=== PATIENT | male | born 1995 | race Two or more races ===

== ENCOUNTER 2024-11-13 08:25 | Emergency (ER) | payer MEDICAID, SELFPAY ==
[2024-11-13 08:26] VITALS: BMI 20.9
[2024-11-13 08:50] VITALS: BP 119/78; PULSE 77; RESP 24; TEMP 37.1; O2SAT 96; BMI 24.7
[2024-11-13] MEDS: DEXAMETHASONE SOD PHOS INJ 10 MG/ML VIAL PO (09:51)
[2024-11-13] MEDS: IBUPROFEN TAB 400 MG TABLET 800 MG PO (09:51)
[2024-11-13 10:07] VITALS: PULSE 58
[2024-11-13] MEDS: ALBUTEROL RT 2.5 MG/0.5 ML NEBU INH ×2 (10:07→10:24)
[2024-11-13 10:10] VITALS: PULSE 85; RESP 16; O2SAT 98
[2024-11-13] MEDS: SODIUM CHLORIDE RT SOL 0.9% 3 ML NEBU INH ×2 (10:10→10:24)
[2024-11-13 10:24] VITALS: PULSE 74; PULSE 81; RESP 18; O2SAT 99
--- NOTE | 2024-11-13 10:57 | PD.EDSOB ---
ED SOB =RME/HPI General Chief Complaint: Shortness of Breath/Dyspnea Stated Complaint: ASTHMA FLAIR UP AND WANTS PRESCRIPTION Time Seen by Provider: 11/13/24 08:32 Arrival date/time: 11/13/24 08:25 This is a 29-year-old male that comes in with complaints of shortness of breath and asthma flareup. Patient states that he does not have an inhaler anymore. Patient reports he also has bad allergies. Patient denies any fever or chills. Patient denies any other symptoms. Patient states his symptoms are worse at night. Related Data Previous Rx's ?Medication ?Instructions ?Recorded ondansetron 4 mg disintegrating 4 mg PO Q8H PRN nausea and 06/21/18 tablet vomiting #5 tabs albuterol sulfate 90 mcg/actuation 2 puff inhalation QID PRN 11/13/24 aerosol inhaler shortness of breath or wheezing #8.5 grams Allergies Allergy/AdvReac Type Severity Reaction Status Date / Time No Known Allergies Allergy Verified 11/13/24 08:27 Review of Systems Review of Systems Systems Reviewed: All systems reviewed, normal except as documented Past Medical History Past Medical History RESPIRATORY: Positive Asthma Surgical History OTHER SURGICAL HX: denies pshx Social History SMOKING STATUS: Current every day smoker SUBSTANCE USE: 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 GENERAL APPEARANCE: Alert and interactive, follows commands, no acute distress, HEAD AND FACE: Non-traumatic. ENT: PERRL, conjuctiva pink and clear, eyelid no trauma, Mucous membrane moist. NECK: Supple, nontender, no nuchal rigidity. CHEST: No tenderness, no crepitus, no paradoxical movement, no retractions. LUNGS: Clear, well ventilated, symmetric, wheezing throughout HEART: Regular rate, regular rhythm, no murmur, no gallops. ABDOMEN: Soft, nondistended, no guarding, nontender, no rebound, no masses, NEUROLOGICAL: Gross motor function intact sensory function intact, Appropriate for age. MUSCULOSKELETAL: low back nontender, full range of motion. EXTREMITIES: No redness no swelling no skin breakdown on bilateral foot and leg. Distal neurovascular status intact bilateral foot SKIN: Color pink, dry, no rash, no lacerations, no abrasions, no contusions. Course Quality Measures none Orders Category Date Time Status ALBUTEROL RT 0.5ml [Proventil Rt 0.5ml] Med 11/13/24 09:38 Discontinued 2.5 mg INH X1 ONE ALBUTEROL RT 0.5ml [Proventil Rt 0.5ml] Med 11/13/24 10:21 Discontinued 2.5 mg INH X1 ONE Dexamethasone Inj [Decadron Inj] Med 11/13/24 09:38 Discontinued 10 mg PO X1 ONE Ibuprofen Tab [Motrin Tab] Med 11/13/24 09:38 Discontinued 800 mg PO X1 ONE Sodium Chloride Rt Saloni 0.9% [NS Rt Saloni 0.9%] Med 11/13/24 09:38 Discontinued 3 ml INH PRN PRN Sodium Chloride Rt Saloni 0.9% [NS Rt Saloni 0.9%] Med 11/13/24 10:21 Discontinued 3 ml INH PRN PRN Vital Signs Vital signs: Vital Signs Temperature 98.8 F 11/13/24 08:50 Pulse Rate 77 11/13/24 08:50 Respiratory Rate 24 H 11/13/24 08:50 Blood Pressure 119/78 11/13/24 08:50 Pulse Oximetry (%) 96 11/13/24 08:50 Oxygen Delivery Method Room Air 11/13/24 08:50 Shortness of Breath / Dyspnea MDM Narrative MDM Narrative:: Patient was given 2 breathing treatments and a dose of Decadron. Patient's wheezing significantly improved. Patient feels better. I told patient to follow-up with primary provider in 1 to 2 days. Come back to emergency room symptoms change or worsen. Will send patient home with an inhaler. Patient data External records reviewed:: [facility] previous records Clinical information provided by:: patient Social determinants that could affect healthcare access:: none Patient has the following chronic illnesses:: none How is presenting disease/condition affected by chronic disease/condition?: no chronic disease Evaluation data The following diagnostics were reviewed and interpreted by me:: lab results Lab and/or radiology exams considered but not ordered:: none Interpretation Summary: see note Medications / Prescriptions Medications or Prescriptions considered but not ordered:: none Medication administrations:: Medication Administration History Discontinued Medications Albuterol (Albuterol Rt 2.5 Mg/0.5 Ml Nebu) 2.5 mg INH X1 ONE Stop: 11/13/24 09:39 Last Admin: 11/13/24 10:07 Dose: 2.5 mg Documented By: KAMERON Albuterol (Albuterol Rt 2.5 Mg/0.5 Ml Nebu) 2.5 mg INH X1 ONE Stop: 11/13/24 10:22 Last Admin: 11/13/24 10:24 Dose: 2.5 mg Documented By: KAMERON Dexamethasone Sodium Phosphate (Dexamethasone Sod Phos Inj 10 Mg/Ml Vial) 10 mg PO X1 ONE Stop: 11/13/24 09:39 Last Admin: 11/13/24 09:51 Dose: 10 mg Documented By: ER Comments: PO Ibuprofen (Ibuprofen Tab 400 Mg Tablet) 800 mg PO X1 ONE Stop: 11/13/24 09:39 Last Admin: 11/13/24 09:51 Dose: 800 mg Documented By: ER Sodium Chloride (Sodium Chloride Rt Saloni 0.9% 3 Ml Nebu) 3 ml INH PRN PRN PRN Reason: SOLN Stop: 12/13/24 09:37 Last Admin: 11/13/24 10:24 Dose: 3 ml Documented By: Admin: 11/13/24 10:10 Dose: 3 ml Documented By: KAMERON Sodium Chloride (Sodium Chloride Rt Saloni 0.9% 3 Ml Nebu) 3 ml INH PRN PRN PRN Reason: SOLN Stop: 12/13/24 10:20 see mar Consultations Consultation(s) initiated? (list below): No Diagnosis Shortness of Breath Differential Diagnosis: acute exacerbation of chronic obstructive airways disease, congestive heart failure, community acquired pneumonia and asthma with exacerbation Most likely diagnosis given after review of the tests above:: rad exacerbation Admission Indicated Admission indicated?: not indicated Admission Request Was there a request for admission?: No Disposition Plan Disposition Plan: Discharge Discharge Attestation Discharge Attestation: The patient and all family members were given an opportunity to ask questions and understood the discharge instructions. Discharge instructions specifically effects, indications for sooner follow up or return to the emergency department, and the expected course of current diagnosis. Patient condition: Stable Discharge Plan Plan Patient Disposition: HOME (Self Care) Patient condition on transfer: Stable Prescriptions/Referrals Prescriptions/Med Rec: New albuterol sulfate 90 mcg/actuation HFA aerosol inhaler 2 puff inhalation QID PRN (Reason: shortness of breath or wheezing) Qty: 8.5 0RF No Action ondansetron 4 mg tablet,disintegrating 4 mg PO Q8H PRN (Reason: nausea and vomiting) Qty: 5 0RF Referrals: Aisha Mtz PA-C [Primary Care Provider] - In 1 week Problem List Clinical Impression: URI (upper respiratory infection), RAD (reactive airway disease) Patient/Caregiver Discharge Instructions Discharge Activity: activity as tolerated Education Materials: ED Inhaler Use, ED URI, Viral W/ Wheezing (Adult) Additional Instructions: Follow up with primary provider in 1-2 days. Come back to ED if symptoms change or worsen Print Language: Tamazight Stand Alone Forms: Samantha Award Info., Patient Portal Info Letter PA/CONSTANCE Supervising Physician PA/CONSTANCE Supervising Physician: ANISHA
[2024-11-13 11:05] VITALS: PULSE 88; RESP 18; TEMP 37.1; O2SAT 99
== END 2024-11-13 11:06 | disposition home or self-care (01) ==
PROVIDERS: Emergency Provider Emergency Medicine; PCP Physician Assistant
DX: J06.9 Acute upper respiratory infection, unspecified (principal); J45.909 Unspecified asthma, uncomplicated
CPT/HCPCS: 94640; 99283; J1100; A9270